=== PATIENT | female | born 1995 | race Hispanic/Latino ===

== ENCOUNTER 2021-06-30 17:53 | Emergency (ER) | payer OTHER, SELFPAY ==
[2021-06-30] MEDS ORDERED: Sodium Chloride 0.9% 1,000 ML ONE (18:30)
== END 2021-06-30 19:31 | disposition home or self-care (01) ==
LOC: MADERS 17:53
DX: S06.0X9A Concussion with loss of consciousness of unspecified duration, initial encounter (principal); V86.09XA Driver of other special all-terrain or other off-road motor vehicle injured in traffic accident, initial encounter
CPT/HCPCS: 70450; 72125; G0390; J7050